=== PATIENT | male | born 1940 | race African-American/Black ===

== ENCOUNTER → 2016-09-06 | Outpatient (CLI) | payer MEDICARE, OTHER ==
--- NOTE | 2016-09-06 14:33 | Diagnostic Imaging Report ---
Indication: Shoulder pain Technique: MRI of the right shoulder obtained in a 1.5 Brigette magnet. Pulse sequences obtained include axial and coronal proton fast spin-echo with fat saturation, sagittal T1 fast spin-echo, sagittal and coronal T2 fast spin-echo with fat saturation. Findings: Curvilinear, full-thickness T2 hyperintense focus demonstrated within the footprint of the supraspinatus tendon consistent with a full-thickness tear. Trace fluid in the subacromial bursa noted. No retraction of the musculotendinous junction appreciated. Rotator cuff muscles appear normal. Teres minor, infraspinatus, subscapularis appear unremarkable. The long head of biceps tendon appears normal. Biceps anchor appear unremarkable. Glenoid labrum appears grossly unremarkable. Bone marrow signal and alignment appear normal. Impression: Full-thickness supraspinatus tear at the footprint Trace fluid in the subacromial bursa
--- NOTE | 2016-09-06 15:27 | Diagnostic Imaging Report ---
Indication: Osteopenia Technique: Transaxial images of the L1, L2, and L3 vertebral bodies obtained in a Siemens sensation [address] Regions of interest were drawn for both cortical and medullary portions of the bone. Average bone then calculated. Total Dose length Product (DLP): [address] Dose Index Volume (CTDIvol): 0.4, 3.1, 2.9, 3.1 mGy Findings: The patient's bone mineral density is 105.3 mg Ca-GARCIA/ml. The T score is -2.6 this means that the patient's average bone mineral density is -2.6 standard deviations less than a typical 20-year-old female. The patient's Z score is 0.94. This means that the patient's average bone mineral density is 0.94 standard deviations greater than age-matched controls. Impression: Bone mineral density is Over 25% below that of young normal females. This patient is considered osteoporotic by WHO criteria. Insufficiency fracture risk is high. Patient should be considered for therapy, if it has not already been started. Recommend followup scan in one year to monitor response to therapy. The CT scanner at [facility] is accredited by the [employer] and the scans are performed using dose optimization techniques as appropriate to a performed exam including Automatic Exposure control.
== END | disposition home or self-care (01) ==
LOC: MRI 12:47
DX: M81.0 Age-related osteoporosis without current pathological fracture (principal); M25.511 Pain in right shoulder
CPT/HCPCS: 77078